=== PATIENT | female | born 1960 | race Hispanic/Latino ===

== ENCOUNTER 2017-12-17 11:06 | Emergency (ER) | payer SELFPAY ==
[2017-12-17 11:52] LABS: Absolute Lymphocytes (CBC) 1.5 K/uL (0.7-4.9); Absolute Monocytes 0.4 K/uL (0.1-1.3); Absolute Neutrophil 4.3 K/uL (1.8-8.0); Basophils % 0.6 % (0-1.3); Eosinophils % 2.8 % (0-4.4); Hematocrit 40.6 % (36.0-45.0); Lymphocytes % 23.6 % (15.3-44.8); MCH 30.5 pg (27.0-35.0); MCV 90.6 fL (80-100); MPV 8.9 fL (7.6-11.3); Monocytes % 6.7 % (3.3-12.3); RBC Red Blood Cell Count 4.49 M/uL (3.86-4.86)
[2017-12-17 11:53] LABS: Potassium 4.2 mmol/L (3.5-5.1)
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
== END 2017-12-17 12:59 | disposition home or self-care (01) ==
LOC: ER 11:06
DX: S16.1XXA Strain of muscle, fascia and tendon at neck level, initial encounter (principal); V49.40XA Driver injured in collision with unspecified motor vehicles in traffic accident, initial encounter
CPT/HCPCS: 36415; 70450; 71260; 72125; 74177; 80048; 85025; 86850; 86900; 86901; 99284; Q9967

== ENCOUNTER 2020-08-30 17:24 | Emergency (ER) | payer OTHER ==
[2020-08-30 18:19] LABS: Hematocrit 43.2 % (36.0-45.0); Lymphocytes % 23.9 % (15.3-44.8); MPV 9.1 fL (7.6-11.3); RBC Red Blood Cell Count 4.93 M/uL (3.86-4.86)
[2020-08-30] MEDS ORDERED: NA CHLORIDE 0.9% 1,000 ML ONE (18:36)
[2020-08-30 18:43] LABS: BUN Blood Urea Nitrogen 18 mg/dL (7-18); Bicarbonate 25 mmol/L (21-32); Glucose Level 283 mg/dL (74-106); Potassium 4.2 mmol/L (3.5-5.1); Sodium Level 137 mmol/L (136-145); Troponin (Emerg Dept Use Only) < 0.02 ng/mL (0.0-0.045)
--- NOTE | 2020-08-30 18:43 | RAD REPORT ---
EXAM DESCRIPTION: RAD - Chest Single View - 08/30/2020 6:35 pm CLINICAL HISTORY: left sided weakness Chest pain. COMPARISON: Chest Pa And Lat (2 Views) dated 12/01/2017; ABDOMEN ACUTE SERIES dated 05/10/2010; Follow Up Breast Axilla Comp dated 06/08/2018 FINDINGS: Portable technique limits examination quality. Tiny nodule in the right lung appears unchanged. The lungs are otherwise grossly clear. The heart is normal in size. No displaced fractures. IMPRESSION: No acute intrathoracic process suspected.
--- NOTE | 2020-08-30 18:55 | EDPHYS ---
Physician Documentation [facility] Name: Luciana Merritt Age: 60 yrs Sex: Female : 1960 Arrival Date: 08/30/2020 Time: 17:25 Bed 17 Private MD: ED Physician Reg Quintana HPI: 08/30 17:59 This 60 yrs old Female presents to ER via Ambulatory with complaints of rn Numbness Of Face. 17:59 This 60 yrs old Female presents to ER via Ambulatory with complaints of rn numbness of face, weakness left side of body. 17:59 The patient's problem is reported as paresthesias, in left upper extremity, in left rn lower extremity, in left side of face, weakness, in the left upper extremity, in the left lower extremity. Onset: The symptoms/episode began/occurred 1 week(s) ago. Duration: The episodes are intermittent. Context: occurred at home, occurred while the patient was at rest. The symptoms are alleviated by nothing. The symptoms are aggravated by nothing. Associated signs and symptoms: Pertinent positives: numbness, tingling, weakness, Pertinent negatives: abdominal pain, chest pain, confusion, headache. Severity of symptoms: At their worst the symptoms were mild in the emergency department the symptoms are unchanged. The patient has not experienced similar symptoms in the past. The patient has been recently seen by a physician:. Reports 1 week of intermittent left facial tingling, left arm and left leg tingling and weakness. No head injury. Has never happened before. Seen by Dr. edwards, told patient was stress. Reports never completely went away, and constant since woke up this AM. No hx of CVA. No vision or speech problem.. Historical: - Allergies: 17:38 No Known Allergies; sv - Home Meds: 17:38 metformin 500 mg Oral tab [Active]; amlodipine-benazepril 10-40 mg oral cap [Active]; sv - PMHx: 17:38 Hypertensive disorder; Diabetes mellitus; sv - PSHx: 17:38 Tummy tuck; sv - Immunization history:: Client reports receiving the 2nd dose of the Covid vaccine, Client reports receiving the 1st dose of the Covid vaccine. - Social history:: Smoking status: Patient denies any tobacco usage or history of. - Family history:: not pertinent. - Hospitalizations: : No recent hospitalization is reported. ROS: 17:59 Constitutional: Negative for fever, chills, and weight loss, Eyes: Negative for injury, rn pain, redness, and discharge, Neck: Negative for injury, pain, and swelling, Cardiovascular: Negative for chest pain, palpitations, and edema, Respiratory: Negative for shortness of breath, cough, wheezing, and pleuritic chest pain, Abdomen/GI: Negative for abdominal pain, nausea, vomiting, diarrhea, and constipation, Back: Negative for injury and pain, : Negative for injury, bleeding, discharge, and swelling, MS/Extremity: Negative for injury and deformity, Skin: Negative for injury, rash, and discoloration, Neuro: + let sided weakness and numbness, left facial tingling. Exam: 17:59 Constitutional: This is a well developed, well nourished patient who is awake, alert, rn and in no acute distress. Head/Face: Normocephalic, atraumatic. Eyes: Pupils equal round and reactive to light, extra-ocular motions intact. ENT: MMM Neck: No Meningismus. Cardiovascular: Tachycardic, regular. No pulse deficits. Respiratory: No increased work of breathing, no retractions or nasal flaring. Abdomen/GI: soft, non-tender Skin: Warm, dry with normal turgor. Normal color with no rashes, no lesions, and no evidence of cellulitis. MS/ Extremity: Pulses equal, no cyanosis. Neurovascular intact. Full, normal range of motion. Equal circumference. Neuro: Awake and alert, GCS 15, oriented to person, place, time, and situation. Cranial nerves II-XII grossly intact. Motor strength 4/5 LUE and LLE with slight drift LUE, struggled to keep LLE off bed but never hit bed. + decreased sensation to soft touch left face and left arm/left leg. 18:27 ECG was reviewed by the Attending Physician. rn Vital Signs: 17:40 BP 183 / 86; Pulse 103; Resp 18; Temp 98.1(T); Pulse Ox 98% on R/A; Weight 76.2 kg; sv Height 5 ft. 1 in. (154.94 cm); Pain 0/10; 19:20 BP 162 / 77; Pulse 90; Resp 16 S; Pulse Ox 96% on R/A; ad5 20:08 BP 174 / 71; Pulse 91; Resp 17 S; Pulse Ox 97% on R/A; ad5 23:12 BP 181 / 82; Pulse 91; Resp 16 S; Pulse Ox 98% on R/A; ad5 17:40 Body Mass Index 31.74 (76.20 kg, 154.94 cm) sv MDM: 17:43 Patient medically screened. rn 18:23 ED course: Pt not TPA candidate, has been happening for 1 week, doesn't feel like ever rn completely resolved, and came in today because hasn't gotten better yet. . 18:53 Differential diagnosis: CVA, TIA, metabolic disorder. Data reviewed: vital signs, rn nurses notes, lab test result(s), EKG, and as a result, I will admit patient. Counseling: I had a detailed discussion with the patient and/or guardian regarding: the historical points, exam findings, and any diagnostic results supporting the discharge/admit diagnosis, lab results, the need for further work-up and treatment in the hospital. ED course: Pt with stroke-like symptoms, all unilateral, pending CT head and angio, if no bleed, will admit to hospitalist service for further w/u and care. . 19:45 Physician consultation: Zander Turpin MD was contacted at 19:40, regarding consult, kb patient's condition, after a discussion of the case, a recommendation for transfer for higher level of care is made. 21:02 ED course: Pt accepted to Neuro tele or Neuro ICU, depending on bed availability, at [facility] by Dr Allen. 08/30 17:52 Order name: CBC with Diff; Complete Time: 18:49 rn 08/30 17:52 Order name: Basic Metabolic Panel; Complete Time: 18:49 rn 08/30 17:52 Order name: CT Head Brain wo Cont; Complete Time: 19:23 rn 08/30 17:52 Order name: CT Head Angio; Complete Time: 19:23 rn 08/30 17:52 Order name: CT Neck Angio; Complete Time: 19:23 rn 08/30 17:52 Order name: Troponin (emerg Dept Use Only); Complete Time: 18:49 rn 08/30 17:52 Order name: IV Start; Complete Time: 18:12 rn 08/30 17:52 Order name: EKG; Complete Time: 17:53 rn 08/30 17:52 Order name: EKG - Nurse/Tech; Complete Time: 18:30 rn 08/30 17:52 Order name: XRAY Chest (1 view); Complete Time: 18:49 rn EC:27 Rate is 89 beats/min. Rhythm is regular. QRS Romeo is Normal. VA interval is normal. QRS rn interval is normal. QT interval is normal. No Q waves. T waves are Normal. No ST changes noted. Clinical impression: Normal ECG. Interpreted by me. Administered Medications: 18:29 Drug: NS 0.9% 1000 ml Route: IV; Rate: 1000 ml; Site: right antecubital; jd3 21:38 Follow up: IV Status: Completed infusion ad5 20:03 Drug: foLIC Acid 1 mg Route: IVPB; Site: right antecubital; ad5 21:37 Follow up: Response: No adverse reaction; IV Status: Completed infusion ad5 20:58 Drug: Aspirin 325 mg Route: PO; ea 21:37 Follow up: Response: No adverse reaction ad5 Disposition Summary: 08/30/20 21:20 Transfer Ordered Transfer Location: [facility] kb Reason: Higher level of care kb Condition: Stable(08/30/20 21:20) kb Problem: new(08/30/20 21:20) kb Symptoms: are unchanged(08/30/20 21:20) kb Accepting Physician: Dr Lui(08/30/20 23:13) ad5 Diagnosis - Weakness(08/30/20 21:20) kb - Paresthesia of skin(08/30/20 21:20) kb - Carotid stenosis with plaque kb Forms: - Medication Reconciliation Form kb - SBAR form kb Addendum: 09/03/2020 07:28 Co-signature as Attending Physician, Reg Quintana MD. r n Signatures: Dispatcher [employer] EDArabella Bertrand, KISHAN DOWELLP-Mamie Gould, RN Reg Wheeler MD MD rn Antunez, Elena RN Hema Mckeon ea, RN RN jd3 Davidson, Andrea ad5 Corrections: (The following items were deleted from the chart) 08/30 18:02 17:59 Constitutional: Negative for fever, chills, and weight loss, Eyes: Negative for rn injury, pain, redness, and discharge, Neck: Negative for injury, pain, and swelling, Cardiovascular: Negative for chest pain, palpitations, and edema, Respiratory: Negative for shortness of breath, cough, wheezing, and pleuritic chest pain, Abdomen/GI: Negative for abdominal pain, nausea, vomiting, diarrhea, and constipation, Back: Negative for injury and pain, : Negative for injury, bleeding, discharge, and swelling, MS/Extremity: Negative for injury and deformity, Skin: Negative for injury, rash, and discoloration, Neuro: + let sided weakness and numbness, left facial tingling. rn : 18:55 Observation rn kb : 18:55 Jose Quintana rn kb : 18:55 Telemetry/MedSurg (observation) rn kb : 18:55 Stable rn kb : 18:55 an ongoing problem rn kb 21: 18:55 are unchanged rn kb : 18:55 Standard rn kb 21: 18:55 rn kb 21: 18:55 Weakness rn kb 21: 18:55 Paresthesia of skin rn kb 23:13 21:20 Dr Lui kb ad5
--- NOTE | 2020-08-30 18:55 | ER ---
Nurse's Notes [facility] Name: Luciana Merritt Age: 60 yrs Sex: Female : 1960 Arrival Date: 08/30/2020 Time: 17:25 Bed 17 Private MD: Diagnosis: Weakness;Paresthesia of skin;Carotid stenosis with plaque Presentation: 08/30 17:37 Chief complaint: Patient states: left facial numbness, left arm weakness x 1 week. sv Today the pain has worsened. Denies any recent fall or neck injury. Denies MONTERO, dizziness, gait disturbance, speech disturbance. Coronavirus screen: Client denies travel out of the [place] in the last 14 days. At this time, the client does not indicate any symptoms associated with coronavirus-19. Ebola Screen: No symptoms or risks identified at this time. Risk Assessment: Do you want to hurt yourself or someone else? Patient reports no desire to harm self or others. Onset of symptoms was August 23, 2020. 17:37 Method Of Arrival: Ambulatory sv 17:37 Acuity: AZUL 2 sv 17:40 Initial Sepsis Screen: Does the patient meet any 2 criteria? HR > 90 bpm. No. Patient's sv initial sepsis screen is negative. Does the patient have a suspected source of infection? No. Patient's initial sepsis screen is negative. Historical: - Allergies: 17:38 No Known Allergies; sv - Home Meds: 17:38 metformin 500 mg Oral tab [Active]; amlodipine-benazepril 10-40 mg oral cap [Active]; sv - PMHx: 17:38 Hypertensive disorder; Diabetes mellitus; sv - PSHx: 17:38 Tummy tuck; sv - Immunization history:: Client reports receiving the 2nd dose of the Covid vaccine, Client reports receiving the 1st dose of the Covid vaccine. - Social history:: Smoking status: Patient denies any tobacco usage or history of. - Family history:: not pertinent. - Hospitalizations: : No recent hospitalization is reported. Screenin:48 Abuse screen: Denies threats or abuse. Nutritional screening: No deficits noted. jd3 Tuberculosis screening: No symptoms or risk factors identified. VAN Screening: Arm Drift: Patient shows no arm weakness. Patient is VAN negative. Fall Risk Ambulatory Aid- None/Bed Rest/Nurse Assist (0 pts). Gait- Normal/Bed Rest/Wheelchair (0 pts) Mental Status- Oriented to own ability (0 pts). Total Aldridge Fall Scale indicates No Risk (0-24 pts). Assessment: 18:27 General: Appears in no apparent distress. comfortable, Behavior is calm, cooperative, jd3 appropriate for age. Pain: Complains of pain in left side of head Quality of pain is described as numb. 18:27 Neuro: Level of Consciousness is awake, alert, obeys commands, Oriented to person, jd3 place, time, situation, Line Erector are equal bilaterally Moves all extremities. Full function Gait is steady, Speech is normal, Facial symmetry appears normal, Pupils are PERRLA, Intact Reports numbness in left side of head since off and on for a week. Cardiovascular: Denies chest pain, Capillary refill < 3 seconds Patient's skin is warm and dry. Rhythm is regular. Respiratory: Airway is patent Respiratory effort is even, unlabored, Respiratory pattern is regular, symmetrical, Denies cough, shortness of breath. GI: No signs and/or symptoms were reported involving the gastrointestinal system. : No signs and/or symptoms were reported regarding the genitourinary system. EENT: No signs and/or symptoms were reported regarding the EENT system. Derm: Skin is intact, Skin is dry, Skin is normal, Skin temperature is warm. Musculoskeletal: Circulation, motion, and sensation intact. Range of motion: intact in all extremities. 19:00 Reassessment: Patient appears in no apparent distress at this time. Patient and/or ad5 family updated on plan of care and expected duration. Pain level reassessed. Patient is alert, oriented x 3, equal unlabored respirations, skin warm/dry/pink. Received care of pt at this time. Pt resting comfortably in stretcher, denies c/o at this time. Provided warm blanket per request. No focal neuro deficits noted or reported at this time. VSS. Will continue to monitor. 20:00 Reassessment: Patient appears in no apparent distress at this time. No changes from ad5 previously documented assessment. Patient and/or family updated on plan of care and expected duration. Pain level reassessed. 21:30 Reassessment: No changes from previously documented assessment. Patient is alert, ad5 oriented x 3, equal unlabored respirations, skin warm/dry/pink. Pt and family updated to plan of care, awaiting acceptance at this time. NAD noted, will continue to monitor. 21:56 Reassessment: Pt report to ENEDELIA Israel at [facility], questions/concerns ad5 addressed. Pt consent for transfer completed at this time. EMS notified of need for pt transfer. NAD noted, will continue to monitor. Vital Signs: 17:40 BP 183 / 86; Pulse 103; Resp 18; Temp 98.1(T); Pulse Ox 98% on R/A; Weight 76.2 kg; sv Height 5 ft. 1 in. (154.94 cm); Pain 0/10; 19:20 BP 162 / 77; Pulse 90; Resp 16 S; Pulse Ox 96% on R/A; ad5 20:08 BP 174 / 71; Pulse 91; Resp 17 S; Pulse Ox 97% on R/A; ad5 23:12 BP 181 / 82; Pulse 91; Resp 16 S; Pulse Ox 98% on R/A; ad5 17:40 Body Mass Index 31.74 (76.20 kg, 154.94 cm) sv ED Course: 17:25 Patient arrived in ED. rg4 17:37 Arm band placed on. sv 17:38 Triage completed. sv 17:43 Reg Quintana MD is Attending Physician. rn 17:48 Hema Mcgowan RN is Primary Nurse. jd3 18:15 Inserted saline lock: 20 gauge in right antecubital area, using aseptic technique. jd3 Blood collected. 18:27 EKG done, by ED staff, reviewed by Reg Quintana MD. jd3 18:29 Patient has correct armband on for positive identification. Placed in gown. Bed in low jd3 position. Call light in reach. Side rails up X 1. Adult w/ patient. pvc monitor on. Pulse ox on. NIBP on. 18:35 XRAY Chest (1 view) In Process Unspecified. EDMS 18:54 Jose Quintana MD is Hospitalizing Provider. rn 18:58 CT Head Brain wo Cont In Process Unspecified. EDMS 18:58 CT Head Angio In Process Unspecified. EDMS 18:58 CT Neck Angio In Process Unspecified. EDMS 19:33 Arabella Srivastava FNP-C is [facility]. kb 19:[address] [facility] with Haydee García. tt3 20:28 Haydee García called back to give an eta for a bed and to speak with Arabella Srivastava, tt3 BUILDING RIGGER, pt provider for more questioning. Stated she would call back with either admin approval or the hospitalist for consultation. Arabella was connected with Dr. Lui via Haydee García as well for consultation. 21:16 Haydee Ricky called back and stated that the pt was going to the ICU so there was no tt3 need for another consultation; gave admin approval. The pt is going to [facility] ICU - 7 [address] Bed 20. The accepting physician is Dr. Lui. Nurse to call report to . Face sheet and covid vaccine sheet faxed to per Haydee's request. 21:56 No provider procedures requiring assistance completed. Patient transferred, IV remains ad5 in place. Administered Medications: 18:29 Drug: NS 0.9% 1000 ml Route: IV; Rate: 1000 ml; Site: right antecubital; jd3 21:38 Follow up: IV Status: Completed infusion ad5 20:03 Drug: foLIC Acid 1 mg Route: IVPB; Site: right antecubital; ad5 21:37 Follow up: Response: No adverse reaction; IV Status: Completed infusion ad5 20:58 Drug: Aspirin 325 mg Route: PO; ea 21:37 Follow up: Response: No adverse reaction ad5 Outcome: 18:55 Decision to Hospitalize by Provider. rn 21:20 ER care complete, transfer ordered by . kb 23:12 Transferred by ground EMS to [facility], Transfer form completed. ad5 23:12 Condition: stable 23:12 Instructed on the need for admit, Demonstrated understanding of instructions. 23:13 Patient left the ED. ad5 Signatures: Dispatcher [employer] EDMS Arabella Srivastava, BRIJESHC Mamie Joseph RN RN sv Nieto, Roman, MD MD rn Garcia, Rubi rg4 Yolanda Kilpatrick RN RN ea Davies, Jonathon, RN RN jd3 Trim, Tyler tt3 Lazarus Amaya ad5 Corrections: (The following items were deleted from the chart) 17:42 17:37 Chief complaint: Patient states: left facial numbness, left arm weakness x 1 sv week. Today the pain has worsened. Denies any recent fall or neck injury. sv 17:42 17:37 Acuity: AZUL 3 sv sv 17:42 17:40 Pulse 103bpm; Resp 18bpm; Pulse Ox 98%; Temp 98.1F; 76.2 kg; Height 5 ft. 1 in.; sv BMI: 31.7; Pain 0/10; sv 18:29 18:27 Pain: Complains of pain in left side of head jd3 jd3
--- NOTE | 2020-08-30 19:05 | RAD REPORT ---
EXAM DESCRIPTION: CT - Head Brain Wo Cont - 08/30/2020 6:58 pm CLINICAL HISTORY: left side weakness Headache, drowsiness COMPARISON: Head angio dated 08/30/2020 TECHNIQUE: All CT scans are performed using dose optimization technique as appropriate and may inclu de automated exposure control or mA/KV adjustment according to patient size. FINDINGS: No intracranial hemorrhage, hydrocephalus or extra-axial fluid collection.No areas of brai n edema or evidence of midline shift. The paranasal sinuses and mastoids are clear. The calvarium is intact. IMPRESSION: No acute intracranial abnormality.
--- NOTE | 2020-08-30 19:09 | RAD REPORT ---
EXAM DESCRIPTION: CT - Head angio - 08/30/2020 6:58 pm CLINICAL HISTORY: WEAKNESS Headache, drowsiness, CVA symptomology COMPARISON: Head Brain Wo Cont dated 08/30/2020 TECHNIQUE: CT angiography of the head was performed with MIPs. All CT scans are performed using dose optimization technique as appropriate and may include automated exposure control or mA/KV adjustment according to patient size. FINDINGS: No evidence of aneurysm is detected. No flow-limiting stenosis or vascular malformation id entified. No large vessel occlusion. Antegrade flow is seen in the vertebral arteries. The vertebral arteries are codominant. The visualized dural venous sinuses are patent. IMPRESSION: No significant flow abnormality is detected.
--- NOTE | 2020-08-30 19:15 | RAD REPORT ---
EXAM DESCRIPTION: CT - Neck Angio - 08/30/2020 6:58 pm CLINICAL HISTORY: weakness Headache, drowsiness, CVA symptomology COMPARISON: No comparisons TECHNIQUE: CT angiography of the neck vessels was performed with MIPs. All CT scans are performed using dose optimization technique as appropriate and may include automated exposure control or mA/KV adjustment according to patient size. FINDINGS: A left aortic arch is identified with normal three vessel configuration of the great vesse ls. No significant flow abnormality is seen of the common carotid bilaterally. Mild to moderate atherosclerosis of the proximal right internal carotid artery is seen. Stenosis abbie mated at 50% based on NASCET criteria noted. A large mixed plaque is present involving the proximal left internal carotid artery. This results in 90-95% stenosis based on NASCET criteria. Normal flow is seen within both vertebral arteries. IMPRESSION: 90-95% stenosis proximal left internal carotid artery suspected caused by large mixed pl aque.
[2020-08-30] MEDS ORDERED: NA CHLORIDE 0.9% 100 ML ONE (20:22)
[2020-08-30] MEDS ORDERED: FOLIC ACID 5 MG/ML VIAL ONE (20:23)
[2020-08-30] MEDS ORDERED: ASPIRIN 325 MG TAB ONE (21:15)
[2020-08-30 23:33] VITALS: BP 181/82; O2SAT 98
[2020-08-30 23:35] VITALS: TEMP 98.1
--- NOTE | 2020-08-31 07:44 | EKG ---
Test Date: 2020-08-30 Test Time: 18:23:39 Change Management Director: ERIKA MEASUREMENT RESULTS: Intervals: Rate: 89 AR: 168 QRSD: 78 QT: 336 QTc: 408 Remer: P: 45 AR: 168 QRS: 5 T: 69 INTERPRETIVE STATEMENTS: Normal sinus rhythm Normal ECG No previous ECG available for comparison Electronically Signed On 08-31-20 07:42:38 CDT by Russ Regan
== END 2020-08-30 23:13 | disposition short-term general hospital (02) ==
LOC: ER 17:24
DX: R53.1 Weakness (principal); I65.29 Occlusion and stenosis of unspecified carotid artery; I10 Essential (primary) hypertension; E11.9 Type 2 diabetes mellitus without complications
CPT/HCPCS: 96365; 96361; 93005; 85025; 80048; 36415; 84484; 70450; 70496; 70498; 71045; 99285; 96366; Q9967; J7030

== ENCOUNTER 2024-02-18 11:56 | Emergency (ER) | payer OTHER ==
--- NOTE | 2024-02-18 13:56 | EDPHYS ---
Physician Documentation [facility] Name: Luciana Rivero Age: 63 yrs Sex: Female : 1960 Arrival Date: 02/18/2024 Time: 11:56 Bed 11 Private MD: ED Physician Mamie Morris HPI: 02/17 13:46 This 63 yrs old Female presents to ER via Ambulatory with complaints of Rash. sd2 13:46 63 yo F presents with CC of rash that started last week while working in her garden. sd2 Seen by PCP and given steroid shot and pill pack with unknown cream. Reports itchiness has not improved and rash has spread down her legs. Denies difficulty breathing, swelling, n/v or other symptoms.. Historical: - Allergies: 12:24 No Known Allergies; cm10 - PMHx: 12:24 diabetes mellitus; Hypertensive disorder; cm10 - PSHx: 12:24 Tummy tuck; cm10 - Immunization history:: Adult Immunizations up to date. - Infectious Disease History:: Denies. - Social history:: Smoking status: unknown. ROS: 13:46 Constitutional: Negative for fever, chills, and weight loss, Eyes: Negative for injury, sd2 pain, redness, and discharge, Cardiovascular: Negative for chest pain, palpitations, and edema, Respiratory: Negative for shortness of breath, cough, wheezing. Abdomen/GI: Negative for abdominal pain, nausea, vomiting, diarrhea. Back: Negative for injury and pain, MS/Extremity: Negative for injury and deformity, Skin: Negative for injury, and discoloration, Positive for rash and pruritus Neuro: Negative for headache, numbness and tingling. Exam: 13:46 Constitutional: This is a well developed, well nourished patient who is awake, alert, sd2 and in no acute distress. Head/Face: Normocephalic, atraumatic. Eyes: EOMI, normal conjunctiva bilaterally Chest/axilla: Normal chest wall appearance and motion. Nontender with no deformity. Cardiovascular: Regular rate and rhythm with a normal S1 and S2. No gallops, murmurs, or rubs. 2+ distal pulses. Respiratory: Lungs have equal breath sounds bilaterally, clear to auscultation and percussion. No rales, rhonchi or wheezes noted. No increased work of breathing, no retractions or nasal flaring. Skin: Warm, dry with normal turgor. Erythematous macular rash with excoriations noted to BLEs, blanching, consistent with poison krupa or contact dermatitis. MS/ Extremity: Pulses equal, no cyanosis. Neurovascular intact. Full, normal range of motion. Psych: Awake, alert, with orientation to person, place and time. Behavior, mood, and affect are within normal limits. Vital Signs: 12:22 BP 184 / 75; Pulse 84; Resp 16; Temp 97.7(TE); Pulse Ox 98% on R/A; Weight 70.76 kg; cm10 Height 5 ft. 0 in. ; Pain 0/10; 14:00 BP 155 / 77; Pulse 80; Resp 17; Pulse Ox 98% on R/A; rs5 12:22 Body Mass Index 30.47 (70.76 kg, 152.4 cm) cm10 12:22 Pain Scale: Adult cm10 MDM: 12:37 Medical Screening Exam initiated sd2 13:46 Differential diagnosis: impetigo, varicella, allergic reaction, parasite infection, sd2 contact dermatitis, poison krupa among others. Data reviewed: vital signs, nurses notes. I considered the following discharge prescriptions or medication management in the emergency department Medications were administered in the Emergency Department. See MAR. Counseling: I had a detailed discussion with the patient and/or guardian regarding the historical points, exam findings, and any diagnostic results supporting the discharge/admit diagnosis, the need for outpatient follow up, to return to the emergency department if symptoms worsen or persist or if there are any questions or concerns that arise at home. ED course: Discussed a second dose of steroids with patient. However she is diabetic and there is significant concern for hyperglycemia. Exam consistent with poison krupa and her main concern is the pruritus which is likely causing her rash to spread due to her continual itching. Will Rx hydroxyzine and patient to follow up outpatient with PCP. She verbalizes understanding of discharge plan and strict return precautions. . Administered Medications: No medications were administered Disposition Summary: 02/18/24 13:55 Discharge Ordered Notes: Location: Home sd2 Problem: new sd2 Symptoms: have improved sd2 Condition: Stable sd2 Diagnosis - Allergic contact dermatitis due to plants, except food sd2 Followup: sd2 - With: Private Physician - When: 2 - 3 days - Reason: Recheck today's complaints, Continuance of care, Re-evaluation by your physician Discharge Instructions: - Discharge Summary Sheet sd2 - Allergies, Adult sd2 - Poison Krupa Dermatitis sd2 - Poison [place] Dermatitis sd2 - Rash, Adult sd2 Forms: - Medication Reconciliation Form sd2 - Antibiotic Education sd2 - Prescription Opioid Use sd2 - Patient Portal Instructions sd2 - Leadership Thank You Letter sd2 Prescriptions: - Hydroxyzine HCl 25 mg Oral tablet - take 1 tablet ORAL route every 6 hours As needed May increase to 2 tablets per sd2 dose if needed for itching; 30 tablet; Refills: 0, Product Selection Permitted Signatures: Mamie Morris MD MD sd2 Ratna Beaulieu RN RN cm10
--- NOTE | 2024-02-18 13:56 | ER ---
Nurse's Notes [facility] Name: Luciana Rivero Age: 63 yrs Sex: Female : 1960 Arrival Date: 02/18/2024 Time: 11:56 Bed 11 Private MD: Diagnosis: Allergic contact dermatitis due to plants, except food Presentation: 02/17 12:22 Chief complaint: Patient states: Rash onset 02/06 after working in the yard. Pt states cm10 that she was seen at pcp and was given steroids and topical ointment with no relief. pt was told to come to the ER. PT states that the rash is now on her legs and its itchy. Coronavirus screen: Client denies travel out of the [place] in the last 14 days. Ebola Screen: Patient denies travel to an Ebola-affected area in the 21 days before illness onset. No symptoms or risks identified at this time. Initial Sepsis Screen: Does the patient meet any 2 criteria? No. Patient's initial sepsis screen is negative. Does the patient have a suspected source of infection? No. Patient's initial sepsis screen is negative. Risk Assessment: Do you want to hurt yourself or someone else? Patient reports no desire to harm self or others. Onset of symptoms was February 18, 2024. 12:22 Method Of Arrival: Ambulatory cm10 12:22 Acuity: AZUL 4 cm10 Triage Assessment: 12:24 General: Appears in no apparent distress. uncomfortable, Behavior is calm, cooperative. cm10 Pain: Denies pain. Neuro: No deficits noted. Level of Consciousness is awake, alert, obeys commands, Oriented to person, place, time, situation, Appropriate for age. Respiratory: No deficits noted. Airway is patent Respiratory effort is even, unlabored, Respiratory pattern is regular, symmetrical. Historical: - Allergies: 12:24 No Known Allergies; cm10 - PMHx: 12:24 diabetes mellitus; Hypertensive disorder; cm10 - PSHx: 12:24 Tummy tuck; cm10 - Immunization history:: Adult Immunizations up to date. - Infectious Disease History:: Denies. - Social history:: Smoking status: unknown. Screenin:40 [facility] ED Fall Risk Assessment (Adult) History of falling in the last 3 months, rs5 including since admission No falls in past 3 months (0 pts) Confusion or Disorientation No (0 pts) Intoxicated or Sedated No (0 pts) Impaired Gait No (0 pts) Mobility Assist Device Used No (0 pt) Altered Elimination No (0 pt) Score/Fall Risk Level 0 - 2 = Low Risk Oriented to surroundings, Maintained a safe environment. Abuse screen: Denies threats or abuse. Nutritional screening: No deficits noted. Tuberculosis screening: No symptoms or risk factors identified. Assessment: 12:30 General: Appears in no apparent distress. uncomfortable, Behavior is calm, cooperative. rs5 Pain: Denies pain. Neuro: Level of Consciousness is awake, alert, obeys commands, Oriented to person, place, time, situation. Cardiovascular: Patient's skin is warm and dry. Respiratory: Airway is patent Respiratory effort is even, unlabored, Respiratory pattern is regular, symmetrical. GI: Abdomen is round non-distended, Abd is soft and non tender X 4 quads. : No signs and/or symptoms were reported regarding the genitourinary system. EENT: No signs and/or symptoms were reported regarding the EENT system. Derm: Rash noted that is multiple red rashes noted to lower extremities bilat and left upper arm. Musculoskeletal: Range of motion: intact in all extremities. 13:41 Reassessment: Patient and/or family updated on plan of care and expected duration. Pain rs5 level reassessed. Patient is alert, oriented x 3, equal unlabored respirations, skin warm/dry/pink. Vital Signs: 12:22 BP 184 / 75; Pulse 84; Resp 16; Temp 97.7(TE); Pulse Ox 98% on R/A; Weight 70.76 kg; cm10 Height 5 ft. 0 in. ; Pain 0/10; 14:00 BP 155 / 77; Pulse 80; Resp 17; Pulse Ox 98% on R/A; rs5 12:22 Body Mass Index 30.47 (70.76 kg, 152.4 cm) cm10 12:22 Pain Scale: Adult cm10 ED Course: 11:57 Patient arrived in ED. mr 12:24 Triage completed. cm10 12:24 Arm band placed on right wrist. Patient placed in waiting room. cm10 12:37 Mamie Morris MD is Attending Physician. sd2 12:40 Patient has correct armband on for positive identification. Placed in gown. Bed in low rs5 position. Call light in reach. Side rails up X2. 12:40 No provider procedures requiring assistance completed. rs5 14:01 Provided Education on: discharge instructions . rs5 14:05 Giuseppe Grayson, RN is Primary Nurse. rs5 14:05 Patient did not have IV access during this emergency room visit. rs5 Administered Medications: No medications were administered Medication: 14:04 VIS not applicable for this client. rs5 Outcome: 13:55 Discharge ordered by . sd2 14:05 Discharged to home ambulatory, rs5 14:05 Condition: stable rs5 14:05 Discharge instructions given to patient, family, Instructed on discharge instructions, follow up and referral plans. medication usage, Demonstrated understanding of instructions, follow-up care, medications, Prescriptions given X 1, 14:06 Patient left the ED. rs5 Signatures: Demetrice Hartmann, Mamie Colby MD MD sd2 Giuseppe Grayson, RN RN rs5 Ratna Beaulieu RN RN cm10
[2024-02-18 14:13] VITALS: BP 184/75; TEMP 97.7; O2SAT 98
== END 2024-02-18 14:06 | disposition home or self-care (01) ==
LOC: ER 11:56
DX: L23.7 Allergic contact dermatitis due to plants, except food (principal)
CPT/HCPCS: 99283